=== PATIENT | male | born 1935 | race Caucasian/White ===

== ENCOUNTER 2016-05-02 21:38 | Inpatient (IN) | payer MEDICARE ==
[~2016-05-02] VITALS: Ht 167.6 cm; Wt 77.6 kg
[2016-05-02] VITALS: BP 151/60
[2016-05-03] VITALS (7 sets, daily range): BP systolic 110–179; BP diastolic 60–99
[2016-05-03] MEDS ORDERED: VANCOMYCIN PER PHARMACY MC PRN (01:00)
[2016-05-03] MEDS ORDERED: ACETAMINOPHEN 325 MG TABLET. PO PRN (01:00)
[2016-05-03] MEDS ORDERED: hydrALAZINE 20 MG/ML VIAL. IVP PRN (01:00)
[2016-05-03] MEDS ORDERED: VANCOMYCIN 2 GM in IV NORMAL SALINE 500ML BAG 500 ML IV ONE (01:30)
[2016-05-03] MEDS ORDERED: ASPI81TA2 PO (02:26)
[2016-05-03] MEDS ORDERED: GALA4SOL PO (02:26)
[2016-05-03] MEDS ORDERED: DIPH25CA58 PO (02:26)
[2016-05-03] MEDS ORDERED: SERT100T PO (02:30)
[2016-05-03] MEDS ORDERED: MEMA10TA20 PO (02:30)
[2016-05-03] MEDS ORDERED: RISP0.5T18 PO (02:30)
[2016-05-03] MEDS ORDERED: TRAZ50TA15 PO (02:30)
[2016-05-03] MEDS: PIPERACILLIN/TAZOBACTAM 3.375 GM in IV NORMAL SALINE 50ML 50 ML IV SCH ×3 (06:00→20:22)
[2016-05-03 06:04] LABS: BASO % 0 % (0-3); EOS % 0 % (0-3); HEMOGLOBIN 13.9 g/dL (13.0-17.5); LYMPH # 0.6 x10^3/uL (1.0-4.8); LYMPH % 18 % (24-48); MEAN CORPUSCULAR HEMOGLOBIN 31 pg (25-35); MEAN CORPUSCULAR HGB CONC 35 g/dL (31-37); MEAN CORPUSCULAR VOLUME 88 fL (79-100); MONO % 2 % (0-9); NEUT % 80 % (31-73); PLATELET COUNT 202 x10^3/uL (140-400); RED BLOOD COUNT 4.53 x10^6/uL (4.30-5.70); RED CELL DISTRIBUTION WIDTH 13.2 % (11.5-14.5); WHITE BLOOD COUNT 3.2 x10^3/uL (4.0-11.0)
[2016-05-03 07:57] LABS: ALBUMIN 2.9 g/dL (3.4-5.0); ALBUMIN/GLOBULIN RATIO 0.8 (1.0-1.7); CALCIUM 8.6 mg/dL (8.5-10.1); CREATININE 0.8 mg/dL (0.7-1.3); GFR 92.8; POTASSIUM 3.8 mmol/L (3.5-5.1); TOTAL BILIRUBIN 0.8 mg/dL (0.2-1.0); TOTAL PROTEIN 6.4 g/dL (6.4-8.2)
--- NOTE | 2016-05-03 09:17 | RAD ---
Portable chest, 05/03/2016: History: Shortness of breath No previous chest radiographs are available at this time for comparison purposes. The heart is mildly enlarged. The aorta is mildly tortuous. The pulmonary vascularity is within normal limits. No pulmonary infiltrates are seen. There is no evidence of pleural fluid. There is a mild thoracic scoliosis. IMPRESSION: 1. Mild cardiomegaly. 2. No acute abnormality is detected.
--- NOTE | 2016-05-03 11:51 | PDOC ---
PULMONARY PROGRESS NOTES Vitals Vital Signs Date Time Temp Pulse Resp B/P Pulse Ox O2 Delivery O2 Flow Rate FiO2 05/03/16 11:20 97.7 73 18 171/89 93 Room Air 97.7 05/03/16 03:00 2.0 Labs Laboratory Tests Test 05/03/16 05:27 White Blood Count 3.2x10^3/uL (4.0-11.0) Red Blood Count 4.53x10^6/uL (4.30-5.70) Hemoglobin 13.9g/dL (13.0-17.5) Hematocrit 40.0% (39.0-53.0) Mean Corpuscular Volume 88fL (79-100) Mean Corpuscular Hemoglobin 31pg (25-35) Mean Corpuscular Hemoglobin Concent 35g/dL (31-37) Red Cell Distribution Width 13.2% (11.5-14.5) Platelet Count 202x10^3/uL (140-400) Neutrophils (%) (Auto) 80% (31-73) Lymphocytes (%) (Auto) 18% (24-48) Monocytes (%) (Auto) 2% (0-9) Eosinophils (%) (Auto) 0% (0-3) Basophils (%) (Auto) 0% (0-3) Neutrophils # (Auto) 2.6x10^3uL (1.8-7.7) Lymphocytes # (Auto) 0.6x10^3/uL (1.0-4.8) Monocytes # (Auto) 0.1x10^3/uL (0.0-1.1) Eosinophils # (Auto) 0.0x10^3/uL (0.0-0.7) Basophils # (Auto) 0.0x10^3/uL (0.0-0.2) Sodium Level 140mmol/L (136-145) Potassium Level 3.8mmol/L (3.5-5.1) Chloride Level 105mmol/L (98-107) Carbon Dioxide Level 22mmol/L (21-32) Anion Gap 13 (6-14) Blood Urea Nitrogen 15mg/dL (8-26) Creatinine 0.8mg/dL (0.7-1.3) Estimated GFR (Cockcroft-Gault) 92.8 BUN/Creatinine Ratio 19 (6-20) Glucose Level 159mg/dL (70-99) Calcium Level 8.6mg/dL (8.5-10.1) Total Bilirubin 0.8mg/dL (0.2-1.0) Aspartate Amino Transf (AST/SGOT) 45U/L (15-37) Alanine Aminotransferase (ALT/SGPT) 34U/L (16-63) Alkaline Phosphatase 85U/L (46-116) BQ-Akb-W-Type Natriuretic Peptide 1067pg/mL (0-449) Total Protein 6.4g/dL (6.4-8.2) Albumin 2.9g/dL (3.4-5.0) Albumin/Globulin Ratio 0.8 (1.0-1.7) Laboratory Tests Test 05/03/16 05:27 White Blood Count 3.2x10^3/uL (4.0-11.0) Red Blood Count 4.53x10^6/uL (4.30-5.70) Hemoglobin 13.9g/dL (13.0-17.5) Hematocrit 40.0% (39.0-53.0) Mean Corpuscular Volume 88fL (79-100) Mean Corpuscular Hemoglobin 31pg (25-35) Mean Corpuscular Hemoglobin Concent 35g/dL (31-37) Red Cell Distribution Width 13.2% (11.5-14.5) Platelet Count 202x10^3/uL (140-400) Neutrophils (%) (Auto) 80% (31-73) Lymphocytes (%) (Auto) 18% (24-48) Monocytes (%) (Auto) 2% (0-9) Eosinophils (%) (Auto) 0% (0-3) Basophils (%) (Auto) 0% (0-3) Neutrophils # (Auto) 2.6x10^3uL (1.8-7.7) Lymphocytes # (Auto) 0.6x10^3/uL (1.0-4.8) Monocytes # (Auto) 0.1x10^3/uL (0.0-1.1) Eosinophils # (Auto) 0.0x10^3/uL (0.0-0.7) Basophils # (Auto) 0.0x10^3/uL (0.0-0.2) Sodium Level 140mmol/L (136-145) Potassium Level 3.8mmol/L (3.5-5.1) Chloride Level 105mmol/L (98-107) Carbon Dioxide Level 22mmol/L (21-32) Anion Gap 13 (6-14) Blood Urea Nitrogen 15mg/dL (8-26) Creatinine 0.8mg/dL (0.7-1.3) Estimated GFR (Cockcroft-Gault) 92.8 BUN/Creatinine Ratio 19 (6-20) Glucose Level 159mg/dL (70-99) Calcium Level 8.6mg/dL (8.5-10.1) Total Bilirubin 0.8mg/dL (0.2-1.0) Aspartate Amino Transf (AST/SGOT) 45U/L (15-37) Alanine Aminotransferase (ALT/SGPT) 34U/L (16-63) Alkaline Phosphatase 85U/L (46-116) LP-Bdb-V-Type Natriuretic Peptide 1067pg/mL (0-449) Total Protein 6.4g/dL (6.4-8.2) Albumin 2.9g/dL (3.4-5.0) Albumin/Globulin Ratio 0.8 (1.0-1.7) Medications Active Scripts Medications Dose Route/Sig Days Date Category Risperdal (Risperidone) 0.5 Mg Tablet 1 Tab PO BID 05/03/16 Reported Memantine HCl 10 Mg Tablet 10 Mg PO [id number] 05/03/16 Reported Trazodone Hcl 50 Mg Tablet 50 Mg PO DAILYWSUP 05/03/16 Reported Zoloft (Sertraline Hcl) 100 Mg Tablet 1 Tab PO DAILY 05/03/16 Reported Galantamine Hydrobromide (Galantamine Hbr) 4 Mg/1 Ml Solution 10 Mg PO DAILY 05/03/16 Reported Benadryl (Diphenhydramine Hcl) 25 Mg Capsule 50 Mg PO PRN QHS PRN 05/03/16 Reported Aspirin 81 Mg Tab.chew 1 Tab PO DAILY 05/03/16 Reported Impression . CONSULT DICTATED NO PE AECOPD POSSIBLE PNEUMONIA SEE ORDERS THANKS YOSEPH ORTEGA MD May 03, 2016 11:51
[2016-05-03] MEDS ORDERED: IOHEXOL 300 MG/ML 75 ML VIAL IV ONE (14:00)
[2016-05-03] MEDS ORDERED: CONTRAST GIVEN MC PRN (14:00)
[2016-05-03] MEDS ORDERED: VANCOMYCIN 1.25 GM in IV NORMAL SALINE 250ML 250 ML IV SCH (14:30)
[2016-05-03 15:42] LABS: OBC FLU VALID
--- NOTE | 2016-05-03 16:10 | RAD ---
CTA of the chest with contrast, 05/03/2016: History: Sudden onset of shortness of breath Multidetector CT imaging was performed following an IV bolus injection of iodinated contrast material. Multiplanar reconstructions were produced including coronal and sagittal MIP images. No filling defects are seen in the main pulmonary arteries to suggest pulmonary emboli. The left and right upper lobe and left lower lobar pulmonary arteries are also patent. There are severe respiratory motion artifact degrading visualization of the segmental pulmonary arteries, particularly in the lower chest. The right lower and middle lobar pulmonary arteries are also inadequately visualized. There is mild calcific plaquing of the thoracic aorta without evidence of aneurysm. Moderate coronary artery calcifications are present. No mediastinal adenopathy is seen. There is a small hiatal hernia. Evaluation of the lung parenchyma is also compromised by the respiratory motion artifacts. There is a small amount of pleural fluid and atelectasis in the posterior costophrenic angle on the left. There is a trace amount of pleural fluid and atelectasis in the posterior costophrenic angle on the right. Extensive hypertrophic degenerative change is present in the spine. There is a mild thoracic scoliosis. IMPRESSION: 1. Limited study due to severe patient respiratory motion artifacts as described above. 2. No central pulmonary emboli are delineated. 3. Moderate coronary artery calcifications. 4. Small pleural effusions and associated atelectasis in the posterior costophrenic angles, left greater than right. PQRS Compliance Statement: One or more of the following individualized dose reduction techniques were utilized for this examination: 1. Automated exposure control 2. Adjustment of the mA and/or kV according to patient size 3. Use of iterative reconstruction technique
[2016-05-03] MEDS ORDERED: DIPHENHYDRAMINE HCL 25 MG CAPSULE PO PRN (18:00)
[2016-05-03] MEDS: MEMANTINE 10 MG TABLET. PO SCH (18:08)
[2016-05-03] MEDS ORDERED: ALBUTEROL SULFATE 2.5 MG/3 ML NEBU. NEB PRN (18:45)
[2016-05-03] MEDS: HALOPERIDOL LACT 5 MG/ML VIAL. IVP PRN (20:14)
[2016-05-03] MEDS: risperiDONE 1 MG TABLET. PO SCH (20:16)
[2016-05-03] MEDS: OSELTAMIVIR 75 MG CAPSULE PO SCH (20:16)
[2016-05-03] MEDS: methylPREDNISolone SOD SUCC PF 125 MG/2 ML VIAL. IV SCH (20:23)
[2016-05-04 03:00] VITALS: BP 139/76
[2016-05-04 04:56] LABS: BASO % 0 % (0-3); EOS % 0 % (0-3); HEMATOCRIT 40.2 % (39.0-53.0); HEMOGLOBIN 13.7 g/dL (13.0-17.5); LYMPH # 0.6 x10^3/uL (1.0-4.8); LYMPH % 5 % (24-48); MEAN CORPUSCULAR HEMOGLOBIN 31 pg (25-35); MEAN CORPUSCULAR HGB CONC 34 g/dL (31-37); MEAN CORPUSCULAR VOLUME 90 fL (79-100); MONO % 2 % (0-9); NEUT % 93 % (31-73); PLATELET COUNT 238 x10^3/uL (140-400); RED BLOOD COUNT 4.45 x10^6/uL (4.30-5.70)
[2016-05-04 05:33] LABS: CALCIUM 8.7 mg/dL (8.5-10.1); CREATININE 0.8 mg/dL (0.7-1.3); GFR 92.8; POTASSIUM 3.9 mmol/L (3.5-5.1)
--- NOTE | 2016-05-04 05:40 | HP ---
ADMIT DATE: 05/02/2016 CHIEF COMPLAINT: Failure to thrive, cough, dementia. HISTORY OF PRESENT ILLNESS: The patient is an 80-year-old gentleman who has been living at home with his up until about 2 weeks ago, when he was placed in a facility secondary to severe progressive dementia. Unfortunately there, he did not do very well from a medical standpoint, had developed cough, respiratory symptoms as well as agitation, which was difficult to handle for the staff at the nursing facility. He was taken to the emergency room at 4 different facilities including [facility] over the past 10 days. He now presents once again with problems due to respiratory infections, shortness of breath and cough. This is at least according to family in the room present, including three daughters and . The patient currently is fast asleep after having received Haldol in the emergency room due to severe agitation. The daughters recollect that in various facilities he had been diagnosed with pneumonia as well as influenza A and he had been started on Tamiflu, received a single dose on Sunday. However, shortly thereafter, he once again ended up in the emergency room where a flu test was actually negative. PAST MEDICAL HISTORY: Essentially minimal save for dementia. FAMILY HISTORY: Noncontributory. SOCIAL HISTORY: He had been living with his . No toxic habits, in a nursing facility for the past 2 weeks. ALLERGIES: No known drug allergies. MEDICATIONS: MAR reconciled with home medications. REVIEW OF SYSTEMS: Unable to obtain secondary to lethargy and somnolence brought on by Haldol. PHYSICAL EXAMINATION: VITAL SIGNS: From today show a blood pressure of 123/67, heart rate of 61, respiratory rate at 18. He is afebrile. GENERAL: This is an obese 80-year-old gentleman resting in bed, sleeping and not arousable to verbal input or soft touch. HEENT: Shows dry mucosa. NECK: Supple. LUNGS: Clear anteriorly. HEART: Regular rate and rhythm. ABDOMEN: Has positive bowel sounds, soft, nontender. EXTREMITIES: Show no edema. SKIN: Warm, soft and dry. LABORATORY DATA: CBC from today shows a WBC of 3.2, hemoglobin 13.9, platelets of 202. Chemistries with a BUN and creatinine of 15 and 0.8, normal electrolytes, glucose at 159. LFTs essentially within normal limits. Albumin at 2.9. BNP 1067. Serology for flu A and B here are negative. IMAGING STUDIES: Chest x-ray shows mild cardiomegaly, no acute abnormality detected. ASSESSMENT AND PLAN: The patient is an 80-year-old gentleman with severe dementia and some respiratory difficulties over the past 1-2 weeks. He has been seen by various facilities. Even for the respiratory symptom, no etiology has been found at this time. He presents with a question of PE, although it is unclear if in any of the facilities or prior he had a CT to demonstrate this. We will obtain CTA here [facility]. My suspicion, however, is that this may be pneumonia superimposed on influenza. Previous screen actually at [facility] on Sunday had been negative. Nevertheless, we will start droplet precautions and start Tamiflu until CTA and serologies can be returned. We will continue on oxygen and he will be placed on broad spectrum antibiotics for suspected infection/bacterial superinfection. Dr. Hayes from Pulmonary has been consulted. His dementia is clearly advanced. He could not be maintained in a nursing facility over the past week. He more than likely will require a memory care unit. We will consult social work to help with placement. We will continue home medications with Risperdal and Haldol as needed. Hopefully, we can minimize administration of meds. For prophylaxis, he will be started on heparin. CELE LAUREN MD DR: UR/nts JOB#: [id number] / [id number] PHILLIP Banerjee MD
[2016-05-04] MEDS: PIPERACILLIN/TAZOBACTAM 3.375 GM in IV NORMAL SALINE 50ML 50 ML IV SCH ×5 (06:11→17:58)
[2016-05-04] MEDS: MEMANTINE 10 MG TABLET. PO SCH ×2 (06:11→17:59)
[2016-05-04 07:00] VITALS: BP 130/86
[2016-05-04] MEDS: risperiDONE 1 MG TABLET. PO SCH ×2 (08:27→21:06)
[2016-05-04] MEDS: HALOPERIDOL LACT 5 MG/ML VIAL. IVP PRN ×3 (08:27→21:06)
[2016-05-04] MEDS: ENOXAPARIN 40 MG/0.4 ML DISP.SYRIN. SQ SCH (08:27)
[2016-05-04] MEDS: SERTRALINE 50 MG TABLET. PO SCH (08:27)
[2016-05-04] MEDS: methylPREDNISolone SOD SUCC PF 125 MG/2 ML VIAL. IV SCH ×2 (08:27→21:07)
[2016-05-04] MEDS: OSELTAMIVIR 75 MG CAPSULE PO SCH (08:27)
[2016-05-04] MEDS: ASPIRIN 81 MG TAB.CHEW PO SCH (08:28)
--- NOTE | 2016-05-04 09:08 | CONS ---
DATE OF CONSULTATION: 05/03/2016 ATTENDING PHYSICIAN: Dr. Lomeli. REASON FOR CONSULTATION: The patient seen in pulmonary consultation at the request of Dr. Lomeli for shortness of air. HISTORY OF PRESENT ILLNESS: The patient is an 80-year-old unable to provide any history, with history of Alzheimer dementia, presented with shortness of air. He underwent CT angiogram. I reviewed the CT, it is limited study due to motion artifact. There is no central pulmonary emboli. There is some atelectasis in the bases and small effusions. The patient is awake, alert, follows some commands, but is unable to provide any history. His respiratory rate is elevated. He has a typical breathing pattern of COPD with some pursed lip breathing. He is currently on oxygen supplementation at 2 liters. He was unable to tell me if he was wearing oxygen at home. PAST MEDICAL HISTORY: Obtained by reviewing the current documentation in the EMR. There is a history of Alzheimer dementia, pneumonia, smoking, suspect COPD. PAST SURGICAL HISTORY: He is status post bilateral knee surgeries. SOCIAL HISTORY: There is a history of tobacco use, I am not sure if he still smokes or when he quit. REVIEW OF SYSTEMS: Unobtainable secondary to the patient's condition. CURRENT MEDICATIONS: List was reviewed. Please see the MRAD. He is receiving IV antibiotics to cover both gram-positive and gram-negative organism. He is currently not on steroids. PHYSICAL EXAMINATION: GENERAL: The patient appeared to be older than stated. His respiratory rate was elevated. He had a prolonged expiratory phase with some minimal audible wheezing. NECK: Jugular venous distention could not be assessed secondary to body habitus. CHEST: Full expansion. LUNGS: Poor airway flow with expiratory wheeze. CARDIOVASCULAR: Regular rate and rhythm with S1 and S2, no S3. ABDOMEN: Obese. EXTREMITIES: No clubbing, cyanosis or edema. NEUROLOGIC: The patient was awake. A detailed neuro exam was not performed. LABORATORY DATA: White count was slightly low. Electrolytes were noted. BUN and creatinine were noted. Albumin was low at 2.9. Serology for influenza was negative. IMPRESSION: 1. Lvvdu-gi-ywlpznw respiratory failure. 2. Acute exacerbation of chronic obstructive pulmonary disease. 3. Possible gram-negative pneumonia. 4. Morbid obesity. 5. Alzheimer dementia. PLAN: 1. We will deescalate antibiotics. 2. Add Solu-Medrol. 3. CT angiogram was performed. There is no evidence of pulmonary emboli. 4. Continue home meds. 5. Nebulized treatments. I do appreciate the privilege in sharing in the patient's care. YOSEPH ORTEGA MD DR: RHIANNA/yana JOB#: [id number] / [id number]
--- NOTE | 2016-05-04 09:43 | PDOC ---
PULMONARY PROGRESS NOTES Vitals Vital Signs Date Time Temp Pulse Resp B/P Pulse Ox O2 Delivery O2 Flow Rate FiO2 05/04/16 03:00 97.5 72 18 139/76 92 Nasal Cannula 2.0 97.5 Labs Laboratory Tests Test 05/03/16 01:41 05/03/16 05:27 05/03/16 15:00 05/04/16 03:15 Nasal Screen MRSA (PCR) Negative (Negative) White Blood Count 3.2x10^3/uL (4.0-11.0) 11.0x10^3/uL (4.0-11.0) Red Blood Count 4.53x10^6/uL (4.30-5.70) 4.45x10^6/uL (4.30-5.70) Hemoglobin 13.9g/dL (13.0-17.5) 13.7g/dL (13.0-17.5) Hematocrit 40.0% (39.0-53.0) 40.2% (39.0-53.0) Mean Corpuscular Volume 88fL (79-100) 90fL (79-100) Mean Corpuscular Hemoglobin 31pg (25-35) 31pg (25-35) Mean Corpuscular Hemoglobin Concent 35g/dL (31-37) 34g/dL (31-37) Red Cell Distribution Width 13.2% (11.5-14.5) 13.0% (11.5-14.5) Platelet Count 202x10^3/uL (140-400) 238x10^3/uL (140-400) Neutrophils (%) (Auto) 80% (31-73) 93% (31-73) Lymphocytes (%) (Auto) 18% (24-48) 5% (24-48) Monocytes (%) (Auto) 2% (0-9) 2% (0-9) Eosinophils (%) (Auto) 0% (0-3) 0% (0-3) Basophils (%) (Auto) 0% (0-3) 0% (0-3) Neutrophils # (Auto) 2.6x10^3uL (1.8-7.7) 10.2x10^3uL (1.8-7.7) Lymphocytes # (Auto) 0.6x10^3/uL (1.0-4.8) 0.6x10^3/uL (1.0-4.8) Monocytes # (Auto) 0.1x10^3/uL (0.0-1.1) 0.2x10^3/uL (0.0-1.1) Eosinophils # (Auto) 0.0x10^3/uL (0.0-0.7) 0.0x10^3/uL (0.0-0.7) Basophils # (Auto) 0.0x10^3/uL (0.0-0.2) 0.0x10^3/uL (0.0-0.2) Sodium Level 140mmol/L (136-145) 142mmol/L (136-145) Potassium Level 3.8mmol/L (3.5-5.1) 3.9mmol/L (3.5-5.1) Chloride Level 105mmol/L (98-107) 107mmol/L (98-107) Carbon Dioxide Level 22mmol/L (21-32) 23mmol/L (21-32) Anion Gap 13 (6-14) 12 (6-14) Blood Urea Nitrogen 15mg/dL (8-26) 21mg/dL (8-26) Creatinine 0.8mg/dL (0.7-1.3) 0.8mg/dL (0.7-1.3) Estimated GFR (Cockcroft-Gault) 92.8 92.8 BUN/Creatinine Ratio 19 (6-20) Glucose Level 159mg/dL (70-99) 148mg/dL (70-99) Calcium Level 8.6mg/dL (8.5-10.1) 8.7mg/dL (8.5-10.1) Total Bilirubin 0.8mg/dL (0.2-1.0) Aspartate Amino Transf (AST/SGOT) 45U/L (15-37) Alanine Aminotransferase (ALT/SGPT) 34U/L (16-63) Alkaline Phosphatase 85U/L (46-116) OY-Yud-I-Type Natriuretic Peptide 1067pg/mL (0-449) Total Protein 6.4g/dL (6.4-8.2) Albumin 2.9g/dL (3.4-5.0) Albumin/Globulin Ratio 0.8 (1.0-1.7) Influenza Type A Antigen Negative (NEGATIVE) Influenza Type B Antigen Negative (NEGATIVE) Laboratory Tests Test 05/03/16 15:00 05/04/16 03:15 Influenza Type A Antigen Negative (NEGATIVE) Influenza Type B Antigen Negative (NEGATIVE) White Blood Count 11.0x10^3/uL (4.0-11.0) Red Blood Count 4.45x10^6/uL (4.30-5.70) Hemoglobin 13.7g/dL (13.0-17.5) Hematocrit 40.2% (39.0-53.0) Mean Corpuscular Volume 90fL (79-100) Mean Corpuscular Hemoglobin 31pg (25-35) Mean Corpuscular Hemoglobin Concent 34g/dL (31-37) Red Cell Distribution Width 13.0% (11.5-14.5) Platelet Count 238x10^3/uL (140-400) Neutrophils (%) (Auto) 93% (31-73) Lymphocytes (%) (Auto) 5% (24-48) Monocytes (%) (Auto) 2% (0-9) Eosinophils (%) (Auto) 0% (0-3) Basophils (%) (Auto) 0% (0-3) Neutrophils # (Auto) 10.2x10^3uL (1.8-7.7) Lymphocytes # (Auto) 0.6x10^3/uL (1.0-4.8) Monocytes # (Auto) 0.2x10^3/uL (0.0-1.1) Eosinophils # (Auto) 0.0x10^3/uL (0.0-0.7) Basophils # (Auto) 0.0x10^3/uL (0.0-0.2) Sodium Level 142mmol/L (136-145) Potassium Level 3.9mmol/L (3.5-5.1) Chloride Level 107mmol/L (98-107) Carbon Dioxide Level 23mmol/L (21-32) Anion Gap 12 (6-14) Blood Urea Nitrogen 21mg/dL (8-26) Creatinine 0.8mg/dL (0.7-1.3) Estimated GFR (Cockcroft-Gault) 92.8 Glucose Level 148mg/dL (70-99) Calcium Level 8.7mg/dL (8.5-10.1) Medications Active Scripts Medications Dose Route/Sig Days Date Category Risperdal (Risperidone) 0.5 Mg Tablet 1 Tab PO BID 05/03/16 Reported Memantine HCl 10 Mg Tablet 10 Mg PO [id number] 05/03/16 Reported Trazodone Hcl 50 Mg Tablet 50 Mg PO DAILYWSUP 05/03/16 Reported Zoloft (Sertraline Hcl) 100 Mg Tablet 1 Tab PO DAILY 05/03/16 Reported Galantamine Hydrobromide (Galantamine Hbr) 4 Mg/1 Ml Solution 10 Mg PO DAILY 05/03/16 Reported Benadryl (Diphenhydramine Hcl) 25 Mg Capsule 50 Mg PO PRN QHS PRN 05/03/16 Reported Aspirin 81 Mg Tab.chew 1 Tab PO DAILY 05/03/16 Reported Impression . 1. Cfqtz-vy-zkqagxs respiratory failure. 2. Acute exacerbation of chronic obstructive pulmonary disease. 3. Possible gram-negative pneumonia. 4. Morbid obesity. 5. Alzheimer dementia. YOSEPH ORTEGA MD May 04, 2016 09:42
[2016-05-04 10:02] LABS: PLT ESTIMATE ADEQUATE (ADEQUATE)
--- NOTE | 2016-05-04 13:22 | PDOC ---
PROGRESS NOTES Chief Complaint Chief Complaint Respir distress Severe dementia ASSESSMENT AND PLAN: 1. Bronchitis: no evidence of PNA or PE on CTA. on nebs, suppl O2, Zosyn ( switch to PO levaquin in AM), and steroids for component of COPD exacerbation 2. Flu A positive on Sat, on Tamiflu x1. finish 5d course. 3. Dementia: doubt Namenda and aricept are helping a this point, consider stopping. on Haldol PRN, risperdal, trazodone, sertraline 4. Prophylaxis: lovenox 5. Dispo: to SNF in AM Vitals Vitals Vital Signs Date Time Temp Pulse Resp B/P Pulse Ox O2 Delivery O2 Flow Rate FiO2 05/04/16 08:00 Nasal Cannula 2.0 05/04/16 03:00 97.5 72 18 139/76 92 97.5 Physical Exam General: Cooperative, No acute distress Heart: Regular rate Lungs: Clear Abdomen: Normal bowel sounds, Soft, No tenderness Extremities: No clubbing, No edema Skin: No rashes Labs LABS Laboratory Tests Test 05/03/16 15:00 05/04/16 03:15 Influenza Type A Antigen Negative (NEGATIVE) Influenza Type B Antigen Negative (NEGATIVE) White Blood Count 11.0x10^3/uL (4.0-11.0) Red Blood Count 4.45x10^6/uL (4.30-5.70) Hemoglobin 13.7g/dL (13.0-17.5) Hematocrit 40.2% (39.0-53.0) Mean Corpuscular Volume 90fL (79-100) Mean Corpuscular Hemoglobin 31pg (25-35) Mean Corpuscular Hemoglobin Concent 34g/dL (31-37) Red Cell Distribution Width 13.0% (11.5-14.5) Platelet Count 238x10^3/uL (140-400) Neutrophils (%) (Auto) 93% (31-73) Lymphocytes (%) (Auto) 5% (24-48) Monocytes (%) (Auto) 2% (0-9) Eosinophils (%) (Auto) 0% (0-3) Basophils (%) (Auto) 0% (0-3) Neutrophils # (Auto) 10.2x10^3uL (1.8-7.7) Lymphocytes # (Auto) 0.6x10^3/uL (1.0-4.8) Monocytes # (Auto) 0.2x10^3/uL (0.0-1.1) Eosinophils # (Auto) 0.0x10^3/uL (0.0-0.7) Basophils # (Auto) 0.0x10^3/uL (0.0-0.2) Segmented Neutrophils % 86% (35-66) Lymphocytes % 9% (24-48) Monocytes % 5% (0-10) Platelet Estimate Adequate (ADEQUATE) Sodium Level 142mmol/L (136-145) Potassium Level 3.9mmol/L (3.5-5.1) Chloride Level 107mmol/L (98-107) Carbon Dioxide Level 23mmol/L (21-32) Anion Gap 12 (6-14) Blood Urea Nitrogen 21mg/dL (8-26) Creatinine 0.8mg/dL (0.7-1.3) Estimated GFR (Cockcroft-Gault) 92.8 Glucose Level 148mg/dL (70-99) Calcium Level 8.7mg/dL (8.5-10.1) Review of Systems Review of Systems pleasantly demented. denies SOB Comment Review of Relevant Labs Vitals/I & O CELE LAUREN MD May 04, 2016 13:22
[2016-05-04 15:00] VITALS: BP 163/96
[2016-05-04] MEDS ORDERED: HALOPERIDOL LACT 5 MG/ML VIAL. IVP PRN (15:53)
[2016-05-04] MEDS ORDERED: traZODone 50 MG TABLET. PO SCH (18:30)
[2016-05-04 19:00] VITALS: BP 142/91
[2016-05-04] MEDS: OSELTAMIVIR 30 MG CAPSULE PO SCH (21:06)
[2016-05-05 03:00] VITALS: BP 142/83
[2016-05-05 05:00] LABS: BASO % 0 % (0-3); EOS % 0 % (0-3); HEMATOCRIT 39.4 % (39.0-53.0); HEMOGLOBIN 13.3 g/dL (13.0-17.5); LYMPH # 0.7 x10^3/uL (1.0-4.8); LYMPH % 9 % (24-48); MEAN CORPUSCULAR HEMOGLOBIN 31 pg (25-35); MEAN CORPUSCULAR HGB CONC 34 g/dL (31-37); MEAN CORPUSCULAR VOLUME 91 fL (79-100); MONO % 3 % (0-9); NEUT % 89 % (31-73); PLATELET COUNT 268 x10^3/uL (140-400); RED BLOOD COUNT 4.35 x10^6/uL (4.30-5.70); WHITE BLOOD COUNT 8.2 x10^3/uL (4.0-11.0)
[2016-05-05 05:34] LABS: CREATININE 0.8 mg/dL (0.7-1.3); GFR 92.8
[2016-05-05] MEDS: MEMANTINE 10 MG TABLET. PO SCH (06:00)
[2016-05-05] MEDS: PIPERACILLIN/TAZOBACTAM 3.375 GM in IV NORMAL SALINE 50ML 50 ML IV SCH ×4 (06:00→12:28)
[2016-05-05 08:25] VITALS: BP 140/79
[2016-05-05] MEDS: ENOXAPARIN 40 MG/0.4 ML DISP.SYRIN. SQ SCH (09:12)
[2016-05-05] MEDS: methylPREDNISolone SOD SUCC PF 125 MG/2 ML VIAL. IV SCH (09:12)
[2016-05-05] MEDS: OSELTAMIVIR 30 MG CAPSULE PO SCH (09:13)
[2016-05-05] MEDS: ASPIRIN 81 MG TAB.CHEW PO SCH (09:13)
[2016-05-05] MEDS: SERTRALINE 50 MG TABLET. PO SCH (09:13)
[2016-05-05] MEDS: risperiDONE 1 MG TABLET. PO SCH (09:13)
[2016-05-05 11:00] VITALS: BP 134/80
--- NOTE | 2016-05-05 13:31 | PDOC ---
PULMONARY PROGRESS NOTES Subjective PT MORE AWAKE Vitals Vital Signs Date Time Temp Pulse Resp B/P Pulse Ox O2 Delivery O2 Flow Rate FiO2 05/05/16 11:00 97.9 72 22 134/80 94 Nasal Cannula 2.0 97.9 General: Alert Lungs: Clear Cardiovascular: S1, S2 Abdomen: Soft Extremities: No Edema Skin: Warm Labs Laboratory Tests Test 05/03/16 15:00 05/04/16 03:15 05/05/16 04:15 Influenza Type A Antigen Negative (NEGATIVE) Influenza Type B Antigen Negative (NEGATIVE) White Blood Count 11.0x10^3/uL (4.0-11.0) 8.2x10^3/uL (4.0-11.0) Red Blood Count 4.45x10^6/uL (4.30-5.70) 4.35x10^6/uL (4.30-5.70) Hemoglobin 13.7g/dL (13.0-17.5) 13.3g/dL (13.0-17.5) Hematocrit 40.2% (39.0-53.0) 39.4% (39.0-53.0) Mean Corpuscular Volume 90fL (79-100) 91fL (79-100) Mean Corpuscular Hemoglobin 31pg (25-35) 31pg (25-35) Mean Corpuscular Hemoglobin Concent 34g/dL (31-37) 34g/dL (31-37) Red Cell Distribution Width 13.0% (11.5-14.5) 13.0% (11.5-14.5) Platelet Count 238x10^3/uL (140-400) 268x10^3/uL (140-400) Neutrophils (%) (Auto) 93% (31-73) 89% (31-73) Lymphocytes (%) (Auto) 5% (24-48) 9% (24-48) Monocytes (%) (Auto) 2% (0-9) 3% (0-9) Eosinophils (%) (Auto) 0% (0-3) 0% (0-3) Basophils (%) (Auto) 0% (0-3) 0% (0-3) Neutrophils # (Auto) 10.2x10^3uL (1.8-7.7) 7.2x10^3uL (1.8-7.7) Lymphocytes # (Auto) 0.6x10^3/uL (1.0-4.8) 0.7x10^3/uL (1.0-4.8) Monocytes # (Auto) 0.2x10^3/uL (0.0-1.1) 0.2x10^3/uL (0.0-1.1) Eosinophils # (Auto) 0.0x10^3/uL (0.0-0.7) 0.0x10^3/uL (0.0-0.7) Basophils # (Auto) 0.0x10^3/uL (0.0-0.2) 0.0x10^3/uL (0.0-0.2) Segmented Neutrophils % 86% (35-66) Lymphocytes % 9% (24-48) Monocytes % 5% (0-10) Platelet Estimate Adequate (ADEQUATE) Sodium Level 142mmol/L (136-145) 144mmol/L (136-145) Potassium Level 3.9mmol/L (3.5-5.1) 4.0mmol/L (3.5-5.1) Chloride Level 107mmol/L (98-107) 108mmol/L (98-107) Carbon Dioxide Level 23mmol/L (21-32) 25mmol/L (21-32) Anion Gap 12 (6-14) 11 (6-14) Blood Urea Nitrogen 21mg/dL (8-26) 22mg/dL (8-26) Creatinine 0.8mg/dL (0.7-1.3) 0.8mg/dL (0.7-1.3) Estimated GFR (Cockcroft-Gault) 92.8 92.8 Glucose Level 148mg/dL (70-99) 148mg/dL (70-99) Calcium Level 8.7mg/dL (8.5-10.1) 9.0mg/dL (8.5-10.1) Laboratory Tests Test 05/05/16 04:15 White Blood Count 8.2x10^3/uL (4.0-11.0) Red Blood Count 4.35x10^6/uL (4.30-5.70) Hemoglobin 13.3g/dL (13.0-17.5) Hematocrit 39.4% (39.0-53.0) Mean Corpuscular Volume 91fL (79-100) Mean Corpuscular Hemoglobin 31pg (25-35) Mean Corpuscular Hemoglobin Concent 34g/dL (31-37) Red Cell Distribution Width 13.0% (11.5-14.5) Platelet Count 268x10^3/uL (140-400) Neutrophils (%) (Auto) 89% (31-73) Lymphocytes (%) (Auto) 9% (24-48) Monocytes (%) (Auto) 3% (0-9) Eosinophils (%) (Auto) 0% (0-3) Basophils (%) (Auto) 0% (0-3) Neutrophils # (Auto) 7.2x10^3uL (1.8-7.7) Lymphocytes # (Auto) 0.7x10^3/uL (1.0-4.8) Monocytes # (Auto) 0.2x10^3/uL (0.0-1.1) Eosinophils # (Auto) 0.0x10^3/uL (0.0-0.7) Basophils # (Auto) 0.0x10^3/uL (0.0-0.2) Sodium Level 144mmol/L (136-145) Potassium Level 4.0mmol/L (3.5-5.1) Chloride Level 108mmol/L (98-107) Carbon Dioxide Level 25mmol/L (21-32) Anion Gap 11 (6-14) Blood Urea Nitrogen 22mg/dL (8-26) Creatinine 0.8mg/dL (0.7-1.3) Estimated GFR (Cockcroft-Gault) 92.8 Glucose Level 148mg/dL (70-99) Calcium Level 9.0mg/dL (8.5-10.1) Medications Active Scripts Medications Dose Route/Sig Days Date Category Risperdal (Risperidone) 0.5 Mg Tablet 1 Tab PO BID 05/03/16 Reported Memantine HCl 10 Mg Tablet 10 Mg PO [id number] 05/03/16 Reported Trazodone Hcl 50 Mg Tablet 50 Mg PO [id number] 05/03/16 Reported Zoloft (Sertraline Hcl) 100 Mg Tablet 1 Tab PO DAILY 05/03/16 Reported Galantamine Hydrobromide (Galantamine Hbr) 4 Mg/1 Ml Solution 10 Mg PO DAILY 05/03/16 Reported Benadryl (Diphenhydramine Hcl) 25 Mg Capsule 50 Mg PO PRN QHS PRN 05/03/16 Reported Aspirin 81 Mg Tab.chew 1 Tab PO DAILY 05/03/16 Reported Impression . 1. Boajg-bq-ywyazwr respiratory failure. 2. Acute exacerbation of chronic obstructive pulmonary disease. 3. Possible gram-negative pneumonia. 4. Morbid obesity. 5. Alzheimer dementia. Plan . PT MENTAL STATUS HAS IMPROVE OK TO TRANSFER TO [facility] IN AM PO ANTIBX YOSEPH ORTEGA MD May 05, 2016 13:31
--- NOTE | 2016-05-05 14:00 | PDOC ---
PROGRESS NOTES Chief Complaint Chief Complaint Respir distress Severe dementia ASSESSMENT AND PLAN: 1. Bronchitis: no evidence of PNA or PE on CTA. on nebs, suppl O2, PO levaquin, and steroids for component of COPD exacerbation 2. Flu A positive on Sat, on Tamiflu x1. finish 5d course. 3. Dementia: stopping. Namenda and aricept . on Haldol PRN, risperdal, trazodone, sertraline 4. Prophylaxis: lovenox 5. Dispo: to SNF today Vitals Vitals Vital Signs Date Time Temp Pulse Resp B/P Pulse Ox O2 Delivery O2 Flow Rate FiO2 05/05/16 11:00 97.9 72 22 134/80 94 Nasal Cannula 2.0 97.9 Labs LABS Laboratory Tests Test 05/05/16 04:15 White Blood Count 8.2x10^3/uL (4.0-11.0) Red Blood Count 4.35x10^6/uL (4.30-5.70) Hemoglobin 13.3g/dL (13.0-17.5) Hematocrit 39.4% (39.0-53.0) Mean Corpuscular Volume 91fL (79-100) Mean Corpuscular Hemoglobin 31pg (25-35) Mean Corpuscular Hemoglobin Concent 34g/dL (31-37) Red Cell Distribution Width 13.0% (11.5-14.5) Platelet Count 268x10^3/uL (140-400) Neutrophils (%) (Auto) 89% (31-73) Lymphocytes (%) (Auto) 9% (24-48) Monocytes (%) (Auto) 3% (0-9) Eosinophils (%) (Auto) 0% (0-3) Basophils (%) (Auto) 0% (0-3) Neutrophils # (Auto) 7.2x10^3uL (1.8-7.7) Lymphocytes # (Auto) 0.7x10^3/uL (1.0-4.8) Monocytes # (Auto) 0.2x10^3/uL (0.0-1.1) Eosinophils # (Auto) 0.0x10^3/uL (0.0-0.7) Basophils # (Auto) 0.0x10^3/uL (0.0-0.2) Sodium Level 144mmol/L (136-145) Potassium Level 4.0mmol/L (3.5-5.1) Chloride Level 108mmol/L (98-107) Carbon Dioxide Level 25mmol/L (21-32) Anion Gap 11 (6-14) Blood Urea Nitrogen 22mg/dL (8-26) Creatinine 0.8mg/dL (0.7-1.3) Estimated GFR (Cockcroft-Gault) 92.8 Glucose Level 148mg/dL (70-99) Calcium Level 9.0mg/dL (8.5-10.1) Review of Systems Review of Systems no new issues Comment Labs Laboratory Tests Test 05/03/16 15:00 05/04/16 03:15 05/05/16 04:15 Influenza Type A Antigen Negative (NEGATIVE) Influenza Type B Antigen Negative (NEGATIVE) White Blood Count 11.0x10^3/uL (4.0-11.0) 8.2x10^3/uL (4.0-11.0) Red Blood Count 4.45x10^6/uL (4.30-5.70) 4.35x10^6/uL (4.30-5.70) Hemoglobin 13.7g/dL (13.0-17.5) 13.3g/dL (13.0-17.5) Hematocrit 40.2% (39.0-53.0) 39.4% (39.0-53.0) Mean Corpuscular Volume 90fL (79-100) 91fL (79-100) Mean Corpuscular Hemoglobin 31pg (25-35) 31pg (25-35) Mean Corpuscular Hemoglobin Concent 34g/dL (31-37) 34g/dL (31-37) Red Cell Distribution Width 13.0% (11.5-14.5) 13.0% (11.5-14.5) Platelet Count 238x10^3/uL (140-400) 268x10^3/uL (140-400) Neutrophils (%) (Auto) 93% (31-73) 89% (31-73) Lymphocytes (%) (Auto) 5% (24-48) 9% (24-48) Monocytes (%) (Auto) 2% (0-9) 3% (0-9) Eosinophils (%) (Auto) 0% (0-3) 0% (0-3) Basophils (%) (Auto) 0% (0-3) 0% (0-3) Neutrophils # (Auto) 10.2x10^3uL (1.8-7.7) 7.2x10^3uL (1.8-7.7) Lymphocytes # (Auto) 0.6x10^3/uL (1.0-4.8) 0.7x10^3/uL (1.0-4.8) Monocytes # (Auto) 0.2x10^3/uL (0.0-1.1) 0.2x10^3/uL (0.0-1.1) Eosinophils # (Auto) 0.0x10^3/uL (0.0-0.7) 0.0x10^3/uL (0.0-0.7) Basophils # (Auto) 0.0x10^3/uL (0.0-0.2) 0.0x10^3/uL (0.0-0.2) Segmented Neutrophils % 86% (35-66) Lymphocytes % 9% (24-48) Monocytes % 5% (0-10) Platelet Estimate Adequate (ADEQUATE) Sodium Level 142mmol/L (136-145) 144mmol/L (136-145) Potassium Level 3.9mmol/L (3.5-5.1) 4.0mmol/L (3.5-5.1) Chloride Level 107mmol/L (98-107) 108mmol/L (98-107) Carbon Dioxide Level 23mmol/L (21-32) 25mmol/L (21-32) Anion Gap 12 (6-14) 11 (6-14) Blood Urea Nitrogen 21mg/dL (8-26) 22mg/dL (8-26) Creatinine 0.8mg/dL (0.7-1.3) 0.8mg/dL (0.7-1.3) Estimated GFR (Cockcroft-Gault) 92.8 92.8 Glucose Level 148mg/dL (70-99) 148mg/dL (70-99) Calcium Level 8.7mg/dL (8.5-10.1) 9.0mg/dL (8.5-10.1) Laboratory Tests Test 05/05/16 04:15 White Blood Count 8.2x10^3/uL (4.0-11.0) Red Blood Count 4.35x10^6/uL (4.30-5.70) Hemoglobin 13.3g/dL (13.0-17.5) Hematocrit 39.4% (39.0-53.0) Mean Corpuscular Volume 91fL (79-100) Mean Corpuscular Hemoglobin 31pg (25-35) Mean Corpuscular Hemoglobin Concent 34g/dL (31-37) Red Cell Distribution Width 13.0% (11.5-14.5) Platelet Count 268x10^3/uL (140-400) Neutrophils (%) (Auto) 89% (31-73) Lymphocytes (%) (Auto) 9% (24-48) Monocytes (%) (Auto) 3% (0-9) Eosinophils (%) (Auto) 0% (0-3) Basophils (%) (Auto) 0% (0-3) Neutrophils # (Auto) 7.2x10^3uL (1.8-7.7) Lymphocytes # (Auto) 0.7x10^3/uL (1.0-4.8) Monocytes # (Auto) 0.2x10^3/uL (0.0-1.1) Eosinophils # (Auto) 0.0x10^3/uL (0.0-0.7) Basophils # (Auto) 0.0x10^3/uL (0.0-0.2) Sodium Level 144mmol/L (136-145) Potassium Level 4.0mmol/L (3.5-5.1) Chloride Level 108mmol/L (98-107) Carbon Dioxide Level 25mmol/L (21-32) Anion Gap 11 (6-14) Blood Urea Nitrogen 22mg/dL (8-26) Creatinine 0.8mg/dL (0.7-1.3) Estimated GFR (Cockcroft-Gault) 92.8 Glucose Level 148mg/dL (70-99) Calcium Level 9.0mg/dL (8.5-10.1) Medications Current Medications Haloperidol Lactate (Haldol) 5 mg PRN Q8HRS PRN IVP AGITATION Last administered on 05/04/16 08:27; Start 05/03/16 at 01:00; Stop 05/04/16 at 15:53 ; Status DC Acetaminophen (Tylenol) 650 mg PRN Q6HRS PRN PO MILD PAIN / TEMP; Start at 01:00 Hydralazine HCl 10 mg 10 mg PRN Q4HRS PRN IVP ELEVATED BP, SEE COMMENTS; Start 05/03/16 at 01:00 Piperacillin Sod/ Tazobactam Sod/ Sodium Chloride (Zosyn/Iv Sodium Chloride 0.9 % 50ml) 50 ml @ 100 mls/hr Q6HRS IV Last administered on 05/05/16 12:28; Start 05/03/16 at 06:00 Vancomycin HCl 1 each 1 each PRN DAILY PRN MC SEE COMMENTS Last administered on 05/03/16 13:21; Start 05/03/16 at 01:00; Stop 05/03/16 at 18:43; Status DC Vancomycin HCl 2 gm/Sodium Chloride 500 ml @ 250 mls/hr 1X ONCE IV Last administered on 05/03/16 01:30; Start 05/03/16 at 01:30; Stop 05/03/16 at 03:29 ; Status DC Vancomycin HCl/ Sodium Chloride (Iv Sodium Chloride 0.9% 250ml) 250 ml @ 167 mls/hr Q12H IV Last administered on 05/03/16 18:09; Start 05/03/16 at 14:30; Stop 05/03/16 at 18:41; Status DC Vancomycin HCl 1 each 1X ONCE MC ; Start 05/04/16 at 14:00; Stop 05/04/16 at 14 :00; Status DC Iohexol (Omnipaque 300 Mg/ml) 75 ml 1X ONCE IV Last administered on 05/03/16 14:00; Start 05/03/16 at 14:00; Stop 05/03/16 at 14:01; Status DC Info (Do NOT chart on this entry -- for MONITORING) 1 each PRN DAILY PRN MC SEE COMMENTS; Start 05/03/16 at 14:00; Stop 05/05/16 at 13:59 Aspirin (Children'S Aspirin) 81 mg DAILY PO Last administered on 05/05/16 09: 13; Start 05/04/16 at 09:00 Diphenhydramine HCl (Benadryl) 50 mg PRN QHS PRN PO CG; Start 05/03/16 at 18:00 Memantine (Namenda) 10 mg [id number] PO Last administered on 05/05/16 06:00; Start 05/03/16 at 18:30 Trazodone HCl (Desyrel) 50 mg DAILYWSUP PO Last administered on 05/04/16 17:59 ; Start 05/04/16 at 18:30 Risperidone (Risperdal) 0.5 mg BID PO Last administered on 05/05/16 09:13; Start 05/03/16 at 21:00 Sertraline HCl (Zoloft) 100 mg DAILY PO Last administered on 05/05/16 09:13; Start 05/04/16 at 09:00 Oseltamivir Phosphate (Tamiflu) 75 mg BID PO Last administered on 05/04/16 08: 27; Start 05/03/16 at 21:00; Stop 05/04/16 at 14:06; Status DC Enoxaparin Sodium (Lovenox 40mg Syringe) 40 mg DAILY SQ Last administered on 09:12; Start 05/04/16 at 09:00 Albuterol Sulfate (Ventolin Neb Soln) 2.5 mg PRN Q2HR PRN NEB [id number]; Start at 18:45 Methylprednisolone Sodium Succinate (Solu-Medrol 125mg Vial) 60 mg BID IV Last administered on 05/05/16 09:12; Start 05/03/16 at 21:00 Oseltamivir Phosphate (Tamiflu) 30 mg BID PO Last administered on 05/05/16 09: 13; Start 05/04/16 at 21:00; Stop 05/08/16 at 20:59 Haloperidol Lactate (Haldol) 5 mg PRN Q4HRS PRN IVP AGITATION Last administered on 05/04/16 16:20; Start 05/04/16 at 15:53; Stop 05/04/16 at 17:37 ; Status DC Haloperidol Lactate (Haldol) 5 mg PRN Q1HR PRN IVP AGITATION Last administered on 05/04/16 21:06; Start 05/04/16 at 17:40 Active Scripts Active Reported Risperdal (Risperidone) 0.5 Mg Tablet 1 Tab PO BID Memantine HCl 10 Mg Tablet 10 Mg PO [id number] Trazodone Hcl 50 Mg Tablet 50 Mg PO DAILYWSUP Zoloft (Sertraline Hcl) 100 Mg Tablet 1 Tab PO DAILY Galantamine Hydrobromide (Galantamine Hbr) 4 Mg/1 Ml Solution 10 Mg PO DAILY Benadryl (Diphenhydramine Hcl) 25 Mg Capsule 50 Mg PO PRN QHS PRN Aspirin 81 Mg Tab.chew 1 Tab PO DAILY Vitals/I & O Vital Sign - Last 24 Hours 05/04/16 05/04/16 05/04/16 05/05/16 15:00 19:00 20:00 03:00 Temp 98.2 98.4 97.8 98.2 98.4 97.8 Pulse 98 79 60 Resp 20 20 18 B/P 163/96 142/91 142/83 Pulse Ox 96 93 95 O2 Delivery Nasal Cannula Nasal Cannula Nasal Cannula Nasal Cannula O2 Flow Rate 2.0 2.0 2.0 2.0 05/05/16 05/05/16 05/05/16 08:00 08:25 11:00 Temp 97.8 97.9 97.8 97.9 Pulse 75 72 Resp 20 22 B/P 140/79 134/80 Pulse Ox 92 94 O2 Delivery Nasal Cannula Nasal Cannula Nasal Cannula O2 Flow Rate 2.0 2.0 2.0 Intake and Output 05/04/16 05/04/16 05/05/16 15:00 23:00 07:00 Intake Total 120 ml 60 ml 50 ml Balance 120 ml 60 ml 50 ml CELE LAUREN MD May 05, 2016 14:00
[2016-05-05] MEDS ORDERED: ACET325T16 PO (14:08)
[2016-05-05] MEDS ORDERED: LEVO250T25 PO (14:08)
[2016-05-05 15:00] VITALS: BP 144/84
--- NOTE | 2016-05-06 23:43 | DS ---
DATE OF DISCHARGE: 05/05/2016 CHIEF COMPLAINT: Respiratory distress, severe dementia. HOSPITAL COURSE: The patient is an 80-year-old gentleman who had been admitted to a detention 10 days ago because of severe dementia. However, in that time span, his family had to take him to the Emergency Room x 4 for respiratory distress and difficulties at the detention. He is now admitted for question of pneumonia. This, however, was ruled out with a CTA, which also excluded the presence of any pulmonary emboli. He was therefore treated with antibiotics for bronchitis. In one of his ER visits, he actually had been positive for flu and was therefore restarted on Tamiflu here. Placement was procured by the family and the patient was deemed stable for discharge on the . PHYSICAL EXAMINATION: Please refer to note from same day; discharge date 05/05/2016. DISCHARGE DISPOSITION: To SNF. DISCHARGE CONDITION: Improved. DISCHARGE DIAGNOSES: Bronchitis, severe dementia. DISCHARGE MEDICATIONS: Please refer to MAR. DISCHARGE INSTRUCTIONS: The patient will follow up with PCP at the detention. Greater than 30 minutes were spent in arranging discharge. CELE LAUREN MD DR: PAOLA/nts JOB#: [id number] / [id number] PATRICIA
== END 2016-05-05 18:36 | DRG 189 ==
LOC: 5 NORTH 23:55
PROVIDERS: ADMIT Internal Medicine; ATTEND Internal Medicine
DX: J96.20 Acute and chronic respiratory failure, unspecified whether with hypoxia or hypercapnia (principal); J44.1 Chronic obstructive pulmonary disease with (acute) exacerbation; J98.11 Atelectasis; E66.01 Morbid (severe) obesity due to excess calories; F02.80 Dementia in other diseases classified elsewhere, unspecified severity, without behavioral disturbance, psychotic disturbance, mood disturbance, and anxiety; G30.9 Alzheimer's disease, unspecified; J10.1 Influenza due to other identified influenza virus with other respiratory manifestations; R62.7 Adult failure to thrive; Z87.891 Personal history of nicotine dependence
CPT/HCPCS: 36415; 71010; 71275; 80048; 80053; 83880; 85007; 85027; 87641; 87804; 94620; 94640; 99284; J1630; J1650; J2543; J2930; J3370; J7040; J7050; Q9967; J7030